=== PATIENT | female | born 1970 | race Caucasian/White ===

== ENCOUNTER 2020-04-16 11:58 | Inpatient (IN) | payer OTHER ==
[~2020-04-16] VITALS: Ht 162.6 cm; Wt 81.9 kg
[2020-04-16] MEDS ORDERED: CloNIDine HCL 0.2 MG TABLET PO ONE (14:00)
[2020-04-16] MEDS ORDERED: FUROSEMIDE 20 MG TABLET PO ONE (14:00)
[2020-04-16 16:30] LABS: APPEARANCE,URINE CLOUDY (CLEAR); BILIRUBIN,URINE NEGATIVE (NEGATIVE); GLUCOSE, URINE (UA) NEGATIVE (NEGATIVE); KETONES,URINE NEGATIVE (NEGATIVE); LEUKOCYTE ESTERASE ,URINE SMALL (NEGATIVE); NITRATE,URINE NEGATIVE (NEGATIVE); OCCULT BLOOD,URINE NEGATIVE (NEGATIVE); PROTEIN,URINE NEGATIVE (NEGATIVE)
[2020-04-16 16:51] LABS: BACTERIA,URINE Few /HPF (None Seen); RBC,URINE 0-2 /HPF (0-2); SQUAMOUS EPITHELIAL CELL,UR Moderate /LPF (None Seen); WBC,URINE 26-50 /HPF (0-5)
[2020-04-16] MEDS ORDERED: 0.9% SODIUM CHLORIDE 10 ML SYRINGE IVP PRN (17:00)
[2020-04-16] MEDS ORDERED: ACETAMINOPHEN 325 MG TABLET PO PRN (17:00)
[2020-04-16] MEDS ORDERED: ALBUTEROL SULFATE 2.5 MG/0.5 ML NEB SOLUTION NEB PRN (17:00)
[2020-04-16] MEDS ORDERED: MAGNESIUM HYDROXIDE SUSPENSION 30 ML UDCUP PO PRN (17:00)
[2020-04-16] MEDS ORDERED: ONDANSETRON HCL 4 MG/2 ML VIAL IVP PRN (17:00)
[2020-04-16] MEDS ORDERED: BISACODYL 10 MG RECTAL RECTAL SUPPOSITORY PR PRN (17:00)
[2020-04-16] MEDS ORDERED: HydrALAZINE HCL 20 MG/ML VIAL IVP PRN (17:00)
[2020-04-16] MEDS ORDERED: IPRATROPIUM BROMIDE 0.5 MG/2.5 ML NEB SOLUTION NEB PRN (17:00)
[2020-04-16] MEDS ORDERED: DOCUSATE SODIUM 100 MG CAPSULE PO PRN (17:00)
[2020-04-16 17:40] LABS: AMPHET/METH SCREEN,URINE POSITIVE (NEGATIVE); BARBITURATE SCREEN, URINE NEGATIVE (NEGATIVE); BENZODIAZEPINES SCREEN,URINE NEGATIVE (NEGATIVE); CANNABINOID SCREEN,URINE POSITIVE (NEGATIVE); COCAINE SCREEN,URINE POSITIVE (NEGATIVE); METHADONE SCREEN, URINE NEGATIVE (NEGATIVE); OPIATE SCREEN,URINE POSITIVE (NEGATIVE)
[2020-04-16 18:00] LABS: PHENCYCLIDINE SCREEN,URINE POSITIVE (NEGATIVE)
[2020-04-16 18:42] LABS: COVID AG,FIA SOURCE NASOPHARYNGEAL
[2020-04-16 20:50] VITALS: BP 179/99
[2020-04-16] MEDS: LABETALOL HCL 100 MG TABLET PO SCH (22:27)
[2020-04-17 00:29] VITALS: BP 120/76
[2020-04-17 05:25] VITALS: BP 116/73
[2020-04-17 08:32] VITALS: BP 149/72
[2020-04-17] MEDS: LABETALOL HCL 100 MG TABLET PO SCH (09:19)
[2020-04-17] MEDS ORDERED: AmLODIPine BESYLATE 5 MG TABLET PO SCH (10:00)
[2020-04-17 11:43] VITALS: BP 124/77
[2020-04-17] MEDS ORDERED: AMLO-257 PO (12:06)
[2020-04-17 12:10] VITALS: BP 108/75
[2020-04-17 16:00] VITALS: BP 119/63
== END 2020-04-17 16:00 | DRG 305 ==
LOC: EMS 11:58 → 5S 16:49
PROVIDERS: ADMIT Internal Medicine; ATTEND Internal Medicine
DX: I16.0 Hypertensive urgency (principal); I10 Essential (primary) hypertension; F17.210 Nicotine dependence, cigarettes, uncomplicated; F15.11 Other stimulant abuse, in remission; Z20.822 Contact with and (suspected) exposure to COVID-19; F11.11 Opioid abuse, in remission; Z91.14 Patient's other noncompliance with medication regimen
CPT/HCPCS: 87086; 87426; 93005; 93306; J0360